=== PATIENT | female | born 2000 | race Hispanic/Latino ===

== ENCOUNTER → 2021-09-18 | Outpatient (CLI) | payer OTHER | END | disposition home or self-care (01) | LOC: RAH 14:00 | PROVIDERS: ATTEND Internal Medicine Cardiovascular Disease | DX: Z13.6 Encounter for screening for cardiovascular disorders (principal); R07.9 Chest pain, unspecified; E78.2 Mixed hyperlipidemia | CPT/HCPCS: 75571 ==